=== PATIENT | female | born 1955 | race Caucasian/White ===

== ENCOUNTER → 2017-12-15 | Outpatient (REF) ==
[~2017-12-15] MED LIST: CHOL10003 PO; DCS100C PO; ESCI10TA55 PO; ESTR1TAB24 PO; HYDR1TAB75 PO; IBP800T PO; MULT-608 PO
--- NOTE | 2017-12-15 12:52 | Diagnostic Imaging Report ---
INDICATION: Fall, pain in the right knee. TIME OF EXAM: 12:37 p.m. Three views of the right knee were obtained. FINDINGS: There are prominent spurs involving the tibial spines. There is mild lateral compartmental degenerative change with marginal osteophyte formation. There is also patellofemoral degenerative change present. No fractures are identified. There is no dislocation. There does appear to be a [id number] knee joint effusion. IMPRESSION: Degenerative changes and joint effusion. No acute bony abnormality is detected. Dictated by: Dictated on workstation # [id number]
== END | disposition home or self-care (01) ==
LOC: OCC 12:05
PROVIDERS: ATTEND Nurse Practitioner Family
CPT/HCPCS: 73562

== ENCOUNTER 2018-05-31 09:00 | Outpatient (CLI) | payer OTHER ==
[~2018-05-31] VITALS: Ht 157.5 cm; Wt 61.2 kg
[2018-05-31] MEDS ORDERED: ESTR0.5T PO (09:02)
[2018-05-31] MEDS ORDERED: ROSU10TA27 PO (09:02)
[2018-05-31] MEDS ORDERED: CHOL200059 PO (09:02)
[2018-05-31] MEDS ORDERED: MULT1TAB69 PO (09:02)
== END 2018-05-31 10:13 ==
LOC: PREOP 09:00
PROVIDERS: ATTEND Surgery
DX: Z01.818 Encounter for other preprocedural examination (principal); Z12.11 Encounter for screening for malignant neoplasm of colon; Z80.0 Family history of malignant neoplasm of digestive organs

== ENCOUNTER 2018-06-01 07:24 | Day surgery (SDC) | payer OTHER ==
[~2018-06-01] VITALS: Ht 157.5 cm; Wt 61.2 kg
[~2018-06-01 07:24] MED LIST changes: +CHOL200059 PO; +ESTR0.5T PO; +MULT1TAB69 PO; +ROSU10TA27 PO
[2018-06-01] MEDS ORDERED: LACTATED RINGERS 1,000 ML IV ONE (07:25)
[2018-06-01] MEDS ORDERED: LACTATED RINGERS 1,000 ML IV STA (07:28)
--- OUTSIDE RECORDS SUMMARY | 2018-06-01 07:37 | XMS REPORT | CCD ---
Author Author [facility] Address [address] [place] [address] Phone Care Team Providers Care Corporate Fitness Program Coordinator Name Role Phone PP Unavailable CCM Unavailable Summary Purpose Interface Exchange Insurance Providers Payer name Policy type / Coverage type Covered libertarian ID Effective Begin Date Effective End Date [employer] [facility] [employer]/[facility] [id number] 2015 Unknown Family history Mother Diagnosis Age At Onset Arthritis Unknown Colon cancer Unknown Social History Social History Element Codes Description Effective Dates Number of children Unknown 3 04/19/[address]: 750223096 Never smoker 04/19/[address]: 281785 Currently drinks alcohol 04/19/2015 Allergies, Adverse Reactions, Alerts Allergies, Adverse Reactions, Alerts data not found Past Medical History Illness Codes Condition Status Onset Date Resolved Date Cellulitis of right lower limb ICD-9: 682.7 ICD-10: L03.115 Active 05/28/2017 Unknown Generalized anxiety disorder ICD-9: 300.02 ICD-10: F41.1 Active 08/20/2016 Unknown Major depressive disorder, single episode, mild ICD-9: 296.21 ICD-10: F32.0 Active 08/20/2016 Unknown Major depressive disorder, single episode, moderate ICD-9: 296.22 ICD-10: F32.1 Active 05/21/2016 Unknown Benign paroxysmal vertigo, bilateral ICD-9: 386.11 ICD-10: H81.13 Active 04/16/2016 Unknown Other allergic rhinitis ICD-9: 477.8 ICD-10: J30.89 Active 04/16/2016 Unknown Polydipsia ICD-9: 783.5 ICD-10: R63.1 Active 04/16/2016 Unknown Encounter for general adult medical examination without abnormal findings ICD-9: V70.0 ICD-10: Z00.00 Active 02/28/2016 Unknown Encounter for screening for malignant neoplasm of colon ICD-9: V76.51 ICD-10: Z12.11 Active 02/28/2016 Unknown Hallux valgus (acquired), right foot ICD-9: 727.1 ICD-10: M20.11 Active 02/28/2016 Unknown Mastodynia ICD-9: 611.71 ICD-10: N64.4 Active 02/28/2016 Unknown Primary osteoarthritis, right hand ICD-9: 715.34 ICD-10: M19.041 Active 02/28/2016 Unknown Other screening mammogram ICD-9: V76.12 Active 04/24/2015 Unknown Osteoarthritis Unknown Active 04/19/2015 Unknown ABNORMAL MAMMOGRAM ICD -9: 793.80 Active 04/18/2015 Unknown Osteoarthritis ICD-9: 715.90 Active 04/18/2015 Unknown VITAMIN D DEFICIENCY ICD-9: 268.9 Active 04/18/2015 Unknown Well adult ICD-9: V70.0 Active 04/18/2015 Unknown Problems Condition Codes Effective Dates Condition Status Cellulitis of right lower limb ICD-9: 682.7 ICD-10: L03.115 05/28/2017 Active Generalized anxiety disorder ICD-9: 300.02 ICD-10: F41.1 08/20/2016 Active Major depressive disorder, single episode, mild ICD-9: 296.21 ICD-10: F32.0 08/20/2016 Active Major depressive disorder, single episode, moderate ICD-9: 296.22 ICD-10: F32.1 05/21/2016 Active Benign paroxysmal vertigo, bilateral ICD-9: 386.11 ICD-10: H81.13 04/16/2016 Active Other allergic rhinitis ICD-9: 477.8 ICD-10: J30.89 04/16/2016 Active Polydipsia ICD-9: 783.5 ICD-10: R63.1 04/16/2016 Active Encounter for general adult medical examination without abnormal findings ICD-9: V70.0 ICD-10: Z00.00 02/28/2016 Active Encounter for screening for malignant neoplasm of colon ICD-9: V76.51 ICD-10: Z12.11 02/28/2016 Active Hallux valgus (acquired), right foot ICD-9: 727.1 ICD-10: M20.11 02/28/2016 Active Mastodynia ICD-9: 611.71 ICD-10: N64.4 02/28/2016 Active Primary osteoarthritis, right hand ICD-9: 715.34 ICD-10: M19.041 02/28/2016 Active Other screening mammogram ICD-9: V76.12 04/24/2015 Active Osteoarthritis Unknown 04/19/2015 Active ABNORMAL MAMMOGRAM ICD -9: 793.80 04/18/2015 Active Osteoarthritis ICD-9: 715.90 04/18/2015 Active VITAMIN D DEFICIENCY ICD-9: 268.9 04/18/2015 Active Well adult ICD-9: V70.0 04/18/2015 Active Medications Medication Codes Instructions Start Date Stop Date Status Fill Instructions Lexapro 10 mg tablet RxNorm: 293134 TAKE 1 TABLET BY MOUTH DAILY 12/09/2017 06/06/2018 Active estradiol 0.5 mg tablet RxNorm: 699740 Tablet(s) TABLET(S) TAKE 1 TABLET BY MOUTH ONCE DAILY 11/03/2017 10/28/2018 Active estradiol 0.5 mg tablet RxNorm: 826052 Tablet(s) TABLET(S) TAKE 1 TABLET BY MOUTH ONCE DAILY 09/18/2017 11/02/2017 Inactive Crestor 10 mg tablet RxNorm: 338034 1 TABLET(S) PO DAILY 201603/12/2018 Active estradiol 0.5 mg tablet RxNorm: 442703 TABLET(S) TAKE 1 TABLET BY MOUTH ONCE DAILY 09/10/2017 09/17/2017 Inactive Bactrim DS 800 mg-160 mg tablet RxNorm: 963378 1 Tablet(s) PO BID 05/28/2017 06/06/2017 Inactive Lexapro 10 mg tablet RxNorm: 110745 TAKE 1 TABLET BY MOUTH DAILY 04/28/2017 07/26/2017 Inactive Crestor 10 mg tablet RxNorm: 915433 1 TABLET(S) PO DAILY 201609/05/2017 Inactive estradiol 0.5 mg tablet RxNorm: 070058 Tablet(s) TAKE 1 TABLET BY MOUTH ONCE DAILY 02/13/2017 09/09/2017 Inactive Lexapro 10 mg tablet RxNorm: 321900 1 TABLET(S) PO DAILY 201602/28/2017 Inactive Crestor 10 mg tablet RxNorm: 361211 1 Tablet(s) PO daily 201503/06/2017 Inactive Lexapro 10 mg tablet RxNorm: 740731 1 Tablet(s) PO daily 201511/18/2016 Inactive estradiol 0.5 mg tablet RxNorm: 546851 TAKE 1 TABLET BY MOUTH ONCE DAILY 07/09/2016 01/04/2017 Inactive Lexapro 10 mg tablet RxNorm: 961603 1 Tablet(s) PO daily 201508/19/2016 Inactive Crestor 10 mg tablet RxNorm: 314420 1 Tablet(s) PO daily 201509/05/2016 Inactive Crestor 10 mg tablet RxNorm: 465539 1 Tablet(s) PO daily 201505/08/2016 Inactive Crestor 10 mg tablet RxNorm: 076917 1 Tablet(s) PO daily 201505/07/2016 Inactive Vitamin D2 50,000 unit capsule RxNorm: 428651 TAKE 1 CAPSULE BY MOUTH ONCE WEEKLY 05/04/2016 06/28/2016 Inactive Flonase Allergy Relief 50 mcg/actuation nasal spray, suspension RxNorm: 2230830 1 [place] NASAL BID 04/17/2016 No Stop Date Active Lexapro 10 mg tablet RxNorm: 935254 1 Tablet(s) PO daily 201505/16/2016 Inactive cetirizine 10 mg tablet RxNorm: 5633623 1 Tablet(s) PO daily 05/16/2016 Inactive Voltaren 1 % topical gel RxNorm: 702424 4 Gram(s) TOP QID 02/2806/27/2016 Inactive estradiol 0.5 mg tablet RxNorm: 094549 TAKE 1 TABLET BY MOUTH ONCE DAILY 01/10/2016 07/07/2016 Inactive estradiol 0.5 mg tablet RxNorm: 239799 TAKE ONE TABLET BY MOUTH DAILY 09/24/2015 12/22/2015 Inactive estradiol 0.5 mg tablet RxNorm: 146632 TAKE ONE TABLET BY MOUTH DAILY 09/24/2015 12/22/2015 Inactive Vitamin D2 50,000 unit capsule RxNorm: 690675 1 Capsule(s) PO QW 08/23/2015 05/04/2016 Inactive estradiol 0.5 mg tablet RxNorm: 735238 1 Tablet(s) PO daily 07/201508/21/2015 Inactive Vitamin D3 1,000 unit capsule RxNorm: 035045 1 Capsule(s) PO daily No Start Date Active Feosol 325 mg (65 mg iron) tablet RxNorm: 370216 1 Tablet(s) PO No Start Date Active Centrum Silver tablet RxNorm: 1 Tablet(s) PO daily No Start Date Active Vitamin D2 oral RxNorm : 4018 oral No Start Date 05/16/2016 Inactive estradiol 0.5 mg tablet RxNorm: 588171 1 Tablet(s) PO daily No Start Date 04/23/2015 Inactive Medication Administered No Medication Administered data Immunizations Vaccine Codes Date Status Influenza CVX: 141 08/16/2014 completed Assessments Condition Codes Effective Dates Cellulitis of right lower limb ICD-10: L03.115 ICD-9: 682.7 05/28/2017 Major depressive disorder, single episode, mild ICD-10: F32.0 ICD-9: 296.21 08/21/2016 Generalized anxiety disorder ICD-10: F41.1 ICD-9: 300.02 08/21/2016 Major depressive disorder, single episode, moderate ICD-10: F32.1 ICD-9: 296.22 05/22/2016 Polydipsia ICD-10: R63.1 ICD-9: 783.5 04/17/2016 Benign paroxysmal vertigo, bilateral ICD-10: H81.13 ICD-9: 386.11 04/17/2016 Other allergic rhinitis ICD-10: J30.89 ICD-9: 477.8 04/17/2016 Primary osteoarthritis, right hand ICD-10: M19.041 ICD-9: 715.34 02/29/2016 Hallux valgus (acquired), right foot ICD-10: M20.11 ICD-9: 727.1 02/29/2016 Encounter for general adult medical examination without abnormal findings ICD-10: Z00.00 ICD-9: V70.0 02/29/2016 Encounter for screening for malignant neoplasm of colon ICD- 10: Z12.11 ICD-9: V76.51 02/29/2016 Mastodynia ICD-10: N64.4 ICD-9: 611.71 02/29/2016 Other screening mammogram ICD-9: V76.12 04/25/2015 Well adult ICD-9: V70.0 04/19/2015 VITAMIN D DEFICIENCY ICD-9: 268.9 2014 ABNORMAL MAMMOGRAM ICD-9: 793.80 2014 Osteoarthritis ICD-9: 715.90 04/19/2015 Reason For Visit Reason For Visit Effective Dates Notes sores 05/28/2017 anxiety 08/21/2016 anxiety 05/22/2016 vertigo 04/17/2016 breast complaint 02/29/2016 arthritis 04/19/2015 Results No Results data Review of Systems System Result Effective Dates Constitutional No recent illness 2016 Constitutional No chills 05/28/2017 Constitutional No diaphoresis 05/28/2017 Constitutional No fever 05/28/2017 Eyes No eye erythema 05/28/2017 Ears/Nose/Throat/Neck No nasal allergies 05/28/2017 Ears/Nose/Throat/Neck No nasal discharge 05/28/2017 Cardiovascular No chest pain/pressure Cardiovascular No dyspnea 05/28/2017 Respiratory No cough 05/28/2017 Respiratory No dyspnea 05/28/2017 Dermatologic sores 05/28/2017 Neurologic No alteration of consciousness 05/28/2017 Neurologic No mental status change 2016 Constitutional No recent illness 2015 Constitutional No chills 08/21/2016 Constitutional No diaphoresis 08/21/2016 Constitutional No fever 08/21/2016 Eyes No eye discharge 08/21/2016 Eyes No eye erythema 08/21/2016 Ears/Nose/Throat/Neck No nasal allergies 08/21/2016 Ears/Nose/Throat/Neck No nasal discharge 08/21/2016 Cardiovascular No chest pain/pressure 04/2016 Cardiovascular No dyspnea 08/21/2016 Respiratory No chest congestion 2015 Respiratory No cough 08/21/2016 Musculoskeletal No joint complaint 2015 Dermatologic No rash 08/21/2016 Neurologic No alteration of consciousness 08/21/2016 Neurologic No mental status change 2015 Psychiatric No anxiety 08/21/2016 Psychiatric depression 08/21/2016 Constitutional No malaise 08/21/2016 Gastrointestinal No abdominal pain 2015 Constitutional No chills 05/22/2016 Constitutional No diaphoresis 05/22/2016 Constitutional No fever 05/22/2016 Eyes No eye discharge 05/22/2016 Eyes No eye erythema 05/22/2016 Cardiovascular No chest pain/pressure 05/2016 Cardiovascular No dyspnea 05/22/2016 Respiratory No chest congestion 2015 Respiratory No cough 05/22/2016 Gastrointestinal No abdominal pain 2015 Gastrointestinal No constipation 2015 Gastrointestinal No diarrhea 05/22/2016 Musculoskeletal No joint complaint 2015 Dermatologic No rash 05/22/2016 Neurologic No alteration of consciousness 05/22/2016 Neurologic No mental status change 2015 Psychiatric No anxiety 05/22/2016 Psychiatric depression 05/22/2016 Constitutional No recent illness 2015 Ears/Nose/Throat/Neck No dizziness 2015 Ears/Nose/Throat/Neck No nasal allergies 05/22/2016 Ears/Nose/Throat/Neck No nasal discharge 05/22/2016 Constitutional No chills 04/17/2016 Constitutional No diaphoresis 04/17/2016 Constitutional No fever 04/17/2016 Constitutional No insomnia 04/17/2016 Constitutional No malaise 04/17/2016 Eyes No eye discharge 04/17/2016 Eyes No eye erythema 04/17/2016 Ears/Nose/Throat/Neck dizziness 2015 Ears/Nose/Throat/Neck No headache 2015 Cardiovascular No chest pain/pressure 12/2015 Cardiovascular No dyspnea 04/17/2016 Cardiovascular No edema 04/17/2016 Respiratory No productive sputum 2015 Respiratory No chest congestion 2015 Respiratory No cough 04/17/2016 Gastrointestinal No abdominal pain 2015 Gastrointestinal No constipation 2015 Gastrointestinal No diarrhea 04/17/2016 Dermatologic No rash 04/17/2016 Dermatologic No sores 04/17/2016 Neurologic No alteration of consciousness 04/17/2016 Psychiatric No anxiety 04/17/2016 Psychiatric depression 04/17/2016 Ears/Nose/Throat/Neck nasal allergies 12/2015 Ears/Nose/Throat/Neck nasal discharge 12/2015 Ears/Nose/Throat/Neck otalgia 04/17/2016 Musculoskeletal No joint complaint 2015 Neurologic No mental status change 2015 Endocrine polydipsia 04/17/2016 Constitutional No recent illness 2015 Constitutional No anorexia 02/29/2016 Constitutional No night sweats 2015 Constitutional No chills 02/29/2016 Constitutional No diaphoresis 02/29/2016 Constitutional No fever 02/29/2016 Constitutional No insomnia 02/29/2016 Constitutional No malaise 02/29/2016 Constitutional No weight loss 02/29/2016 Constitutional No weight gain 02/29/2016 Eyes No eye discharge 02/29/2016 Eyes No eye erythema 02/29/2016 Ears/Nose/Throat/Neck dizziness 2015 Ears/Nose/Throat/Neck No headache 2015 Cardiovascular No chest pain/pressure Cardiovascular No dyspnea 02/29/2016 Cardiovascular No edema 02/29/2016 Respiratory No productive sputum 2015 Respiratory No chest congestion 2015 Respiratory No cough 02/29/2016 Gastrointestinal No abdominal pain 2015 Gastrointestinal No constipation 2015 Gastrointestinal No diarrhea 02/29/2016 Genitourinary/Nephrology No dysuria 02/28 Dermatologic No rash 02/29/2016 Dermatologic No sores 02/29/2016 Neurologic No alteration of consciousness 02/29/2016 Psychiatric No anxiety 02/29/2016 Psychiatric No depression 02/29/2016 Musculoskeletal joint complaint 2015 Genitourinary/Nephrology breast complaint 02/29/2016 Constitutional No recent illness 2014 Constitutional No anorexia 04/19/2015 Constitutional No night sweats 2014 Constitutional No chills 04/19/2015 Constitutional No diaphoresis 04/19/2015 Constitutional fatigue 04/19/2015 Constitutional No fever 04/19/2015 Constitutional No insomnia 04/19/2015 Constitutional No malaise 04/19/2015 Constitutional No weight loss 04/19/2015 Constitutional No weight gain 04/19/2015 Eyes No eye discharge 04/19/2015 Eyes No eye erythema 04/19/2015 Ears/Nose/Throat/Neck dizziness 2014 Ears/Nose/Throat/Neck No headache 2014 Cardiovascular No chest pain/pressure 02/2015 Cardiovascular No dyspnea 04/19/2015 Cardiovascular No edema 04/19/2015 Respiratory No productive sputum 2014 Respiratory No chest congestion 2014 Respiratory No cough 04/19/2015 Gastrointestinal No abdominal pain 2014 Gastrointestinal No constipation 2014 Gastrointestinal No diarrhea 04/19/2015 Genitourinary/Nephrology No dysuria 04/19 Musculoskeletal joint complaint 2014 Dermatologic No rash 04/19/2015 Dermatologic No sores 04/19/2015 Neurologic No alteration of consciousness 04/19/2015 Psychiatric No anxiety 04/19/2015 Psychiatric No depression 04/19/2015 Physical Exam Exam Name System Name Item Name Status Result Effective Dates Notes Full Exam - Dermatology Constitutional general appearance Overall: well nourished 05/28/2017 None Full Exam - Dermatology Constitutional general appearance Overall: well developed 05/28/2017 None Full Exam - Dermatology Constitutional general appearance Overall: in no acute distress 05/28/2017 None Full Exam - Dermatology Eyes conjunctiva/ eyelids Overall: clear conjunctiva bilaterally 05/28/2017 None Full Exam - Dermatology Eyes conjunctiva/ eyelids Overall: normal eyelids 05/28/2017 None Full Exam - Dermatology Ears/Nose/Throat oropharynx Overall: clear oral mucosa 05/28/2017 None Full Exam - Dermatology Ears/Nose/Throat lips/teeth/gingiva Overall: benign lips 05/28/2017 None Full Exam - Dermatology Respiratory respiratory effort/rhythm Overall: no retractions 05/28/2017 None Full Exam - Dermatology Respiratory respiratory effort/rhythm Overall: normal rate 05/28/2017 None Full Exam - Dermatology Integument insp & palp - right lower extremity Location: on the foot 05/28/2017 None Full Exam - Dermatology Integument insp & palp - right lower extremity Color: erythematous 05/28/2017 None Full Exam - Dermatology Integument insp & palp - right lower extremity Appearance: indurated 05/28/2017 None Full Exam - Dermatology Integument insp & palp - right lower extremity Number: two 05/28/2017 None Full Exam - Dermatology Integument insp & palp - right lower extremity Consistency: firm 05/28/2017 None Full Exam - Dermatology Integument insp & palp - right lower extremity Consistency: tender 05/28/2017 None Full Exam - Dermatology Psychiatric orientation Overall: oriented to person, place and time 05/28/2017 None Full Exam - Dermatology Psychiatric mood and affect Overall: normal mood and affect 05/28/2017 None Full Exam - Dermatology Neurologic gait Overall: no ataxia, no unsteadiness 05/28/2017 None Full Exam - General 1994 Constitutional general appearance Overall: well developed 08/21/2016 None Full Exam - General 1994 Constitutional general appearance Overall: in no acute distress 08/21/2016 None Full Exam - General 1994 Constitutional general appearance Overall: well nourished 08/21/2016 None Full Exam - General 1994 Eyes conjunctiva /eyelids Overall: conjunctiva clear 08/21/2016 None Full Exam - General 1994 Eyes conjunctiva /eyelids Overall: cornea clear 08/21/2016 None Full Exam - General 1994 Eyes conjunctiva /eyelids Overall: eyelids normal 08/21/2016 None Full Exam - General 1994 Ears/Nose/Throat lips/teeth/gingiva Overall: benign lips 08/21/2016 None Full Exam - General 1994 Ears/Nose/Throat oral cavity/pharynx/larynx Overall: oral mucosa clear 08/21/2016 None Full Exam - General 1994 Respiratory auscultation Overall: breath sounds clear bilaterally 08/21/2016 None Full Exam - General 1994 Respiratory respiratory effort/rhythm Overall: no retractions 08/21/2016 None Full Exam - General 1994 Respiratory respiratory effort/rhythm Overall: normal rate 08/21/2016 None Full Exam - General 1994 Cardiovascular extremities Overall: no clubbing 08/21/2016 None Full Exam - General 1994 Cardiovascular auscultation of heart Overall: regular rate 08/21/2016 None Full Exam - General 1994 Cardiovascular auscultation of heart Overall: normal heart sounds 08/21/2016 None Full Exam - General 1994 Musculoskeletal spine, ribs and pelvis Overall: good posture 08/21/2016 None Full Exam - General 1994 Musculoskeletal gait and station Overall: normal gait 08/21/2016 None Full Exam - General 1994 Musculoskeletal gait and station Overall: normal station 08/21/2016 None Full Exam - General 1994 Integument inspection of skin Overall: no rash, lesions 08/21/2016 None Full Exam - General 1994 Neurologic cranial nerves Overall: crainial nerves 2 - 12 grossly intact 08/21/2016 None Full Exam - General 1994 Psychiatric orientation/consciousness Overall: oriented to person, place and time 08/21/2016 None Full Exam - General 1994 Psychiatric mood and affect Overall: normal mood and affect 08/21/2016 None Full Exam - General 1994 Psychiatric mood and affect Mood: happy 08/21/2016 None Full Exam - General 1994 Psychiatric appearance Overall: well-groomed, good eye contact 08/21/2016 None Full Exam - General 1994 Eyes pupils and irises Overall: pupils equal, round, reactive to light and accomodation 08/21/2016 None Full Exam - General 1994 Ears/Nose/Throat oral cavity/pharynx/larynx Overall: oropharyngeal mucosa clear 08/21/2016 None Full Exam - General 1994 Ears/Nose/Throat oral cavity/pharynx/larynx Overall: no masses 08/21/2016 None Full Exam - General 1994 Ears/Nose/Throat otoscopic exam Overall: external auditory canals clear 08/21/2016 None Full Exam - General 1994 Ears/Nose/Throat otoscopic exam Overall: tympanic membranes clear 08/21/2016 None Full Exam - General 1994 Lymphatic neck nodes Overall: anterior cervical chain benign 08/21/2016 None Full Exam - General 1994 Lymphatic neck nodes Overall: posterior cervical chain benign 08/21/2016 None Full Exam - General 1994 Musculoskeletal head and neck Overall: head atraumatic 08/21/2016 None Full Exam - General 1994 Constitutional general appearance Overall: well developed 05/22/2016 None Full Exam - General 1994 Constitutional general appearance Overall: in no acute distress 05/22/2016 None Full Exam - General 1994 Constitutional general appearance Overall: well nourished 05/22/2016 None Full Exam - General 1994 Eyes conjunctiva /eyelids Overall: conjunctiva clear 05/22/2016 None Full Exam - General 1994 Eyes conjunctiva /eyelids Overall: cornea clear 05/22/2016 None Full Exam - General 1994 Eyes conjunctiva /eyelids Overall: eyelids normal 05/22/2016 None Full Exam - General 1994 Ears/Nose/Throat lips/teeth/gingiva Overall: benign lips 05/22/2016 None Full Exam - General 1994 Ears/Nose/Throat oral cavity/pharynx/larynx Overall: oral mucosa clear 05/22/2016 None Full Exam - General 1994 Ears/Nose/Throat oral cavity/pharynx/larynx Posterior Pharynx: clear post nasal drainage 05/22/2016 None Full Exam - General 1994 Respiratory auscultation Overall: breath sounds clear bilaterally 05/22/2016 None Full Exam - General 1994 Respiratory respiratory effort/rhythm Overall: no retractions 05/22/2016 None Full Exam - General 1994 Respiratory respiratory effort/rhythm Overall: normal rate 05/22/2016 None Full Exam - General 1994 Cardiovascular extremities Overall: no clubbing 05/22/2016 None Full Exam - General 1994 Cardiovascular auscultation of heart Overall: regular rate 05/22/2016 None Full Exam - General 1994 Cardiovascular auscultation of heart Overall: normal heart sounds 05/22/2016 None Full Exam - General 1994 Musculoskeletal spine, ribs and pelvis Overall: good posture 05/22/2016 None Full Exam - General 1994 Musculoskeletal gait and station Overall: normal gait 05/22/2016 None Full Exam - General 1994 Musculoskeletal gait and station Overall: normal station 05/22/2016 None Full Exam - General 1994 Integument inspection of skin Overall: no rash, lesions 05/22/2016 None Full Exam - General 1994 Neurologic cranial nerves Overall: crainial nerves 2 - 12 grossly intact 05/22/2016 None Full Exam - General 1994 Psychiatric orientation/consciousness Overall: oriented to person, place and time 05/22/2016 None Full Exam - General 1994 Psychiatric mood and affect Overall: normal mood and affect 05/22/2016 None Full Exam - General 1994 Psychiatric appearance Overall: well-groomed, good eye contact 05/22/2016 None Full Exam - General 1994 Psychiatric speech Overall: normal quality, no aphasia 05/22/2016 None Full Exam - General 1994 Psychiatric speech Overall: normal quality, quantity, rate 05/22/2016 None Full Exam - General 1994 Psychiatric mood and affect Mood: happy 05/22/2016 None Full Exam - General 1994 Constitutional general appearance Overall: well developed 04/17/2016 None Full Exam - General 1994 Constitutional general appearance Overall: in no acute distress 04/17/2016 None Full Exam - General 1994 Constitutional general appearance Overall: well nourished 04/17/2016 None Full Exam - General 1994 Eyes conjunctiva /eyelids Overall: conjunctiva clear 04/17/2016 None Full Exam - General 1994 Eyes conjunctiva /eyelids Overall: cornea clear 04/17/2016 None Full Exam - General 1994 Eyes conjunctiva /eyelids Overall: eyelids normal 04/17/2016 None Full Exam - General 1994 Ears/Nose/Throat otoscopic exam Overall: external auditory canals clear 04/17/2016 None Full Exam - General 1994 Ears/Nose/Throat oral cavity/pharynx/larynx Overall: oral mucosa clear 04/17/2016 None Full Exam - General 1994 Ears/Nose/Throat oral cavity/pharynx/larynx Overall: oropharyngeal mucosa clear 04/17/2016 None Full Exam - General 1994 Ears/Nose/Throat oral cavity/pharynx/larynx Overall: no masses 04/17/2016 None Full Exam - General 1994 Respiratory auscultation Overall: breath sounds clear bilaterally 04/17/2016 None Full Exam - General 1994 Respiratory respiratory effort/rhythm Overall: no retractions 04/17/2016 None Full Exam - General 1994 Respiratory respiratory effort/rhythm Overall: normal rate 04/17/2016 None Full Exam - General 1994 Cardiovascular extremities Overall: no clubbing 04/17/2016 None Full Exam - General 1994 Cardiovascular auscultation of heart Overall: regular rate 04/17/2016 None Full Exam - General 1994 Cardiovascular auscultation of heart Overall: normal heart sounds 04/17/2016 None Full Exam - General 1994 Abdomen abdominal exam Overall: no tenderness 04/17/2016 None Full Exam - General 1994 Abdomen abdominal exam Overall: normal bowel sounds 04/17/2016 None Full Exam - General 1994 Lymphatic neck nodes Overall: anterior cervical chain benign 04/17/2016 None Full Exam - General 1994 Lymphatic neck nodes Overall: posterior cervical chain benign 04/17/2016 None Full Exam - General 1994 Musculoskeletal spine, ribs and pelvis Overall: good posture 04/17/2016 None Full Exam - General 1994 Integument inspection of skin Overall: no rash, lesions 04/17/2016 None Full Exam - General 1994 Neurologic cranial nerves Overall: crainial nerves 2 - 12 grossly intact 04/17/2016 None Full Exam - General 1994 Psychiatric orientation/consciousness Overall: oriented to person, place and time 04/17/2016 None Full Exam - General 1994 Ears/Nose/Throat otoscopic exam Tympanic membrane: air- fluid level 04/17/2016 None Full Exam - General 1994 Ears/Nose/Throat oral cavity/pharynx/larynx Posterior Pharynx: clear post nasal drainage 04/17/2016 None Full Exam - General 1994 Ears/Nose/Throat lips/teeth/gingiva Overall: benign lips 04/17/2016 None Full Exam - General 1994 Musculoskeletal gait and station Overall: normal gait 04/17/2016 None Full Exam - General 1994 Musculoskeletal gait and station Overall: normal station 04/17/2016 None Full Exam - General 1994 Psychiatric mood and affect Overall: normal mood and affect 04/17/2016 None Full Exam - General 1994 Psychiatric appearance Overall: well-groomed, good eye contact 04/17/2016 None Full Exam - General 1994 Psychiatric speech Overall: normal quality, no aphasia 04/17/2016 None Full Exam - General 1994 Psychiatric speech Overall: normal quality, quantity, rate 04/17/2016 None Full Exam - General 1994 Psychiatric attention Overall: normal digit recall and number repeating 04/17/2016 None Full Exam - General 1994 Psychiatric thought Overall: normal form and content 04/17/2016 None Full Exam - General 1994 Psychiatric cognition/memory Overall: immediate, recent, remote memory intact 04/17/2016 None Full Exam - General 1994 Psychiatric cognition/memory Overall: normal concentration, intelligence 04/17/2016 None Full Exam - General 1994 Psychiatric judgment/insight Overall: judgment and insight intact 04/17/2016 None Full Exam - General 1994 Psychiatric mood and affect Mood: depressed 04/17/2016 None Full Exam - General 1994 Constitutional general appearance Overall: well developed 02/29/2016 None Full Exam - General 1994 Constitutional general appearance Overall: in no acute distress 02/29/2016 None Full Exam - General 1994 Constitutional general appearance Overall: well nourished 02/29/2016 None Full Exam - General 1994 Eyes conjunctiva /eyelids Overall: conjunctiva clear 02/29/2016 None Full Exam - General 1994 Eyes conjunctiva /eyelids Overall: cornea clear 02/29/2016 None Full Exam - General 1994 Eyes conjunctiva /eyelids Overall: eyelids normal 02/29/2016 None Full Exam - General 1994 Eyes pupils and irises Overall: pupils equal, round, reactive to light and accomodation 02/29/2016 None Full Exam - General 1994 Ears/Nose/Throat otoscopic exam Overall: external auditory canals clear 02/29/2016 None Full Exam - General 1994 Ears/Nose/Throat otoscopic exam Overall: tympanic membranes clear 02/29/2016 None Full Exam - General 1994 Ears/Nose/Throat oral cavity/pharynx/larynx Overall: oral mucosa clear 02/29/2016 None Full Exam - General 1994 Ears/Nose/Throat oral cavity/pharynx/larynx Overall: oropharyngeal mucosa clear 02/29/2016 None Full Exam - General 1994 Ears/Nose/Throat oral cavity/pharynx/larynx Overall: no masses 02/29/2016 None Full Exam - General 1994 Respiratory auscultation Overall: breath sounds clear bilaterally 02/29/2016 None Full Exam - General 1994 Respiratory respiratory effort/rhythm Overall: no retractions 02/29/2016 None Full Exam - General 1994 Respiratory respiratory effort/rhythm Overall: normal rate 02/29/2016 None Full Exam - General 1994 Cardiovascular extremities Overall: no clubbing 02/29/2016 None Full Exam - General 1994 Cardiovascular auscultation of heart Overall: regular rate 02/29/2016 None Full Exam - General 1994 Cardiovascular auscultation of heart Overall: normal heart sounds 02/29/2016 None Full Exam - General 1994 Cardiovascular auscultation of heart Overall: no murmurs 02/29/2016 None Full Exam - General 1994 Abdomen abdominal exam Overall: no tenderness 02/29/2016 None Full Exam - General 1994 Abdomen abdominal exam Overall: normal bowel sounds 02/29/2016 None Full Exam - General 1994 Lymphatic neck nodes Overall: anterior cervical chain benign 02/29/2016 None Full Exam - General 1994 Lymphatic neck nodes Overall: posterior cervical chain benign 02/29/2016 None Full Exam - General 1994 Musculoskeletal spine, ribs and pelvis Overall: spine benign 02/29/2016 None Full Exam - General 1994 Musculoskeletal spine, ribs and pelvis Overall: sacroiliac joint benign 02/29/2016 None Full Exam - General 1994 Musculoskeletal spine, ribs and pelvis Overall: good posture 02/29/2016 None Full Exam - General 1994 Integument inspection of skin Overall: no rash, lesions 02/29/2016 None Full Exam - General 1994 Neurologic deep tendon reflexes Overall: deep tendon reflexes intact 02/29/2016 None Full Exam - General 1994 Neurologic cranial nerves Overall: crainial nerves 2 - 12 grossly intact 02/29/2016 None Full Exam - General 1994 Psychiatric orientation/consciousness Overall: oriented to person, place and time 02/29/2016 None Full Exam - General 1994 Chest/Breast breast and axillae palpation Axillae: no mass 02/29/2016 None Full Exam - General 1994 Psychiatric orientation/consciousness Overall: oriented to person, place and time 04/19/2015 None Full Exam - General 1994 Neurologic deep tendon reflexes Overall: deep tendon reflexes intact 04/19/2015 None Full Exam - General 1994 Neurologic cranial nerves Overall: crainial nerves 2 - 12 grossly intact 04/19/2015 None Full Exam - General 1994 Integument inspection of skin Overall: no rash, lesions 04/19/2015 None Full Exam - General 1994 Musculoskeletal spine, ribs and pelvis Overall: good posture 04/19/2015 None Full Exam - General 1994 Musculoskeletal spine, ribs and pelvis Overall: sacroiliac joint benign 04/19/2015 None Full Exam - General 1994 Musculoskeletal spine, ribs and pelvis Overall: spine benign 04/19/2015 None Full Exam - General 1994 Lymphatic neck nodes Overall: anterior cervical chain benign 04/19/2015 None Full Exam - General 1994 Lymphatic neck nodes Overall: posterior cervical chain benign 04/19/2015 None Full Exam - General 1994 Abdomen abdominal exam Overall: no tenderness 04/19/2015 None Full Exam - General 1994 Abdomen abdominal exam Overall: normal bowel sounds 04/19/2015 None Full Exam - General 1994 Cardiovascular auscultation of heart Overall: regular rate 04/19/2015 None Full Exam - General 1994 Cardiovascular auscultation of heart Overall: normal heart sounds 04/19/2015 None Full Exam - General 1994 Cardiovascular auscultation of heart Overall: no murmurs 04/19/2015 None Full Exam - General 1994 Cardiovascular extremities Overall: no clubbing 04/19/2015 None Full Exam - General 1994 Respiratory auscultation Overall: breath sounds clear bilaterally 04/19/2015 None Full Exam - General 1994 Respiratory respiratory effort/rhythm Overall: normal rate 04/19/2015 None Full Exam - General 1994 Respiratory respiratory effort/rhythm Overall: no retractions 04/19/2015 None Full Exam - General 1994 Ears/Nose/Throat otoscopic exam Overall: tympanic membranes clear 04/19/2015 None Full Exam - General 1994 Ears/Nose/Throat otoscopic exam Overall: external auditory canals clear 04/19/2015 None Full Exam - General 1994 Ears/Nose/Throat oral cavity/pharynx/larynx Overall: oropharyngeal mucosa clear 04/19/2015 None Full Exam - General 1994 Ears/Nose/Throat oral cavity/pharynx/larynx Overall: no masses 04/19/2015 None Full Exam - General 1994 Ears/Nose/Throat oral cavity/pharynx/larynx Overall: oral mucosa clear 04/19/2015 None Full Exam - General 1994 Eyes conjunctiva /eyelids Overall: conjunctiva clear 04/19/2015 None Full Exam - General 1994 Eyes conjunctiva /eyelids Overall: eyelids normal 04/19/2015 None Full Exam - General 1994 Eyes conjunctiva /eyelids Overall: cornea clear 04/19/2015 None Full Exam - General 1994 Eyes pupils and irises Overall: pupils equal, round, reactive to light and accomodation 04/19/2015 None Full Exam - General 1994 Constitutional general appearance Overall: well nourished 04/19/2015 None Full Exam - General 1994 Constitutional general appearance Overall: well developed 04/19/2015 None Full Exam - General 1994 Constitutional general appearance Overall: in no acute distress 04/19/2015 None Procedures No Procedures data Vital Signs Date Vital 05/28/2017 Blood Pressure 1: 132/70 Code : 8480-6 BMI: 25.4 Code : 88852-9 Heart Rate 1 : 62 bpm Height: 5'2" SpO2: 98% Weight: 139 lbs 08/21/2016 Blood Pressure 1: 140/72 Code : 8480-6 BMI: 24.9 Code : 24999-7 Heart Rate 1 : 59 bpm Height: 5'2" SpO2: 96% Weight: 136 lbs 05/22/2016 Blood Pressure 1: 120/72 Code : 8480-6 BMI: 25.1 Code : 59571-3 Heart Rate 1 : 67 bpm Height: 5'2" SpO2: 96% Weight: 137 lbs 04/17/2016 Blood Pressure 1: 130/68 Code : 8480-6 BMI: 24.5 Code : 84668-0 Heart Rate 1 : 75 bpm Height: 5'2" SpO2: 97% Weight: 134 lbs 02/29/2016 Blood Pressure 1: 130/80 Code : 8480-6 BMI: 25.1 Code : 99108-9 Heart Rate 1 : 60 bpm Height: 5'2" SpO2: 96% Weight: 137 lbs 04/19/2015 Blood Pressure 1: 128/70 Code : 8480-6 BMI: 25.1 Code : 87577-0 Heart Rate 1 : 72 bpm Height: 5'2" Weight: 137 lbs Functional Status No Functional Status data History of Present Illness Symptom Name Status Result Effective Date Notes sores Location-Extremities on the right foot 05/28/2017 None sores Quality acute None sores Quality erythematous 05/28/2017 None sores Quality pruritic 05/28/2017 None sores Quality enlarging 05/28/2017 None sores Color erythematous 05/28/2017 None sores Onset and Resolution sudden in onset 05/28/2017 None sores Pertinent Findings Denies fever 05/28/2017 None anxiety Quality chronic 08/21/2016 None anxiety Quality improving 08/21/2016 None anxiety Onset and Resolution ongoing 08/21/2016 None anxiety Limitation on Activities does not limit activities 08/21/2016 None anxiety Frequency of Episodes decreasing 08/21/2016 None anxiety Triggers divorce 08/21/2016 None anxiety Triggers family discord 08/21/2016 None anxiety Triggers stress 08/21/2016 None anxiety Alleviating Factors medication 08/21/2016 None anxiety Pertinent Findings Denies dyspnea 08/21/2016 None depression Quality chronic 08/21/2016 None depression Quality improving 08/21/2016 None depression Onset and Resolution ongoing 08/21/2016 None depression Onset of Symptom during adulthood 08/21/2016 None depression Limitation on Activities does not limit activities 08/21/2016 None depression Frequency of Episodes decreasing 08/21/2016 None depression Alleviating Factors medication 08/21/2016 None anxiety Quality chronic 05/22/2016 None anxiety Quality improving 05/22/2016 None anxiety Onset and Resolution ongoing 05/22/2016 None anxiety Limitation on Activities does not limit activities 05/22/2016 None anxiety Frequency of Episodes decreasing 05/22/2016 None anxiety Triggers divorce 05/22/2016 None anxiety Triggers family discord 05/22/2016 None anxiety Triggers stress 05/22/2016 None anxiety Alleviating Factors medication 05/22/2016 None anxiety Pertinent Findings Denies dyspnea 05/22/2016 None depression Quality chronic 05/22/2016 None depression Quality improving 05/22/2016 None depression Onset and Resolution ongoing 05/22/2016 None depression Onset of Symptom during adulthood 05/22/2016 None depression Limitation on Activities does not limit activities 05/22/2016 None depression Frequency of Episodes decreasing 05/22/2016 None depression Alleviating Factors medication 05/22/2016 None vertigo Quality intermittent 04/17/2016 None vertigo Onset and Resolution gradual in onset 04/17/2016 None vertigo Onset of Symptom 2 months ago 04/17/2016 None nasal allergies Location in both nares 04/17/2016 None nasal allergies Onset and Resolution ongoing 04/17/2016 None nasal allergies Onset of Symptom during adulthood 04/17/2016 None nasal allergies Triggers season change 04/17/2016 None nasal allergies Pertinent Findings Denies fever 04/17/2016 None polydipsia Onset and Resolution gradual in onset 04/17/2016 None polydipsia Onset and Resolution ongoing 04/17/2016 None polydipsia Pertinent Findings Denies fever 04/17/2016 None polydipsia Pertinent Findings Denies dehydration 04/17/2016 None breast complaint Quality intermittent 02/29/2016 None breast complaint Onset and Resolution ongoing 02/29/2016 None breast complaint Onset of Symptom 1 years ago 02/29/2016 None breast complaint Pertinent Findings Denies back pain 02/29/2016 None breast complaint Pertinent Findings breast pain 02/29/2016 None hand pain Location on the left 02/29/2016 None hand pain Location on the right 02/29/2016 None hand pain Pertinent Findings Denies decreased range of motion 02/29/2016 None hand pain Pertinent Findings Denies pain with movement 02/29/2016 None breast complaint Location in the left upper outer quadrant 02/29/2016 None arthritis Exacerbating Factors activity 04/19/2015 None arthritis Frequency of Episodes unchanged 04/19/2015 None arthritis Pertinent Findings swelling 04/19/2015 None arthritis Pertinent Findings stiffness 04/19/2015 None arthritis Alleviating Factors NSAID's 04/19/2015 None memory loss Frequency of Episodes weekly 04/19/2015 None memory loss Limitation on Activities does not limit activities 04/19/2015 None memory loss Onset and Resolution ongoing 04/19/2015 None memory loss Triggers no known associated factors 04/19/2015 None arthritis Limitation on Activities does not limit activities 04/19/2015 None arthritis Location knees 04/19/2015 None arthritis Location on the left 04/19/2015 None arthritis Location on the right 04/19/2015 None arthritis Onset and Resolution ongoing 04/19/2015 None arthritis Quality chronic 04/19/2015 None arthritis Severity mild 04/19/2015 None arthritis Sports Participation not significant 04/19/2015 None Advance Directives No Advance Directive data Encounters Encounter Performer Location Codes Date 73383 EST. PATIENT, LEVEL III Diagnosis: Cellulitis of right lower limb[ICD10: L03.115] Rachel Lozada MD, [facility] CPT-4: 63200 05/28/2017 97649 EST. PATIENT, LEVEL IV Diagnosis: Generalized anxiety disorder[ICD10: F41.1] Diagnosis: Major depressive disorder, single episode, mild[ICD10: F32.0] Rachel Lozada MD , [facility] CPT-4: 45971 08/21/2016 80483 EST. PATIENT, LEVEL IV Diagnosis: Generalized anxiety disorder[ICD10: F41.1] Diagnosis: Major depressive disorder, single episode, moderate[ICD10: F32.1] Rachel Lozada MD, [facility] CPT-4: 78984 05/22/2016 74291 EST. PATIENT, LEVEL IV Diagnosis: Benign paroxysmal vertigo, bilateral[ICD10: H81.13] Diagnosis: Other allergic rhinitis[ICD10: J30.89] Diagnosis: Polydipsia[ICD10: R63.1] Diagnosis: Major depressive disorder, single episode, moderate[ICD10: F32.1] [facility] CPT-4: 44340 04/17/2016 ([id number]) PREV VISIT EST AGE 40-64 Diagnosis: Encounter for general adult medical examination without abnormal findings[ICD10: Z00.00] Diagnosis: Encounter for screening for malignant neoplasm of colon[ICD10: Z12.11 ] Diagnosis: Mastodynia[ICD10: N64.4] Diagnosis: Primary osteoarthritis, right hand[ICD10: M19.041] Diagnosis: Hallux valgus (acquired), right foot[ICD10: M20.11] [facility] CPT-4: 77756 02/29/2016 ([id number]) PREV VISIT NEW AGE 40-64 Diagnosis: Well adult[ICD9: V70.0] Diagnosis: Osteoarthritis[ICD9: 715.90] Diagnosis: VITAMIN D DEFICIENCY[ICD9: 268.9] Diagnosis: ABNORMAL MAMMOGRAM[ICD9: 793.80] [facility] CPT-4: 67251 04/19/2015 Plan of Care Planned Activity Notes Codes Status Date Visit Plan: Cellulitis - continue with oral antibiotics as previously directed, return to clinic as previously directed, call for acute change in symptoms, worsening redness, warmth, discharge. 05/28/2017 Appointment: Rachel Walter WPtel: [address] [place], [place] [id number] [[email or web address] (30 min) [facility] 05/28/2017 Patient Education: Patient Medication Summary Completed 05/28/2017 Patient Education: Obesity Completed 05/28/2017 Visit Plan: Chronic Depression and anxiety - the pt has symptoms of chronic anxiety and depression that have been fairly well controlled since the last office visit. The pt has expected periods of exacerbation with abatement of the symptoms with change in situational exposure. No change in current medications. 08/21/2016 Patient Education: Patient Medication Summary Completed 08/21/2016 Visit Plan: Chronic Depression and anxiety - the pt has symptoms of chronic anxiety and depression that have been fairly well controlled since the last office visit. The pt has expected periods of exacerbation with abatement of the symptoms with change in situational exposure. No change in current medications. 05/22/2016 Patient Education: Patient Medication Summary Completed 05/22/2016 Visit Plan: Allergies - chronic - recommended pt to use allergy medication as prescribed. Pt has been counseled as to the appropriate use of the medication. Pt to call if allergy symptoms are not controlled with the medication. If using nasal spray, instructions as follows: Nasal spray- use twice daily, one spray per nostril twice daily, after 30 minutes, rinse out nose with saline spray.. Use opposite hand per nostril to spray in the nasal steroid allergy spray. BPPV - Benign Paroxysmal Positional Vertigo - discussed diagnosis with the patient, offered the pt the appropriate additional information in hand-out. Pt instructed in home exercises to help alleviate and prevent future recurrent episodes of vertigo. Pt informed that if symptoms worsen, call the office for further instructions/medication interventions. Depression - uncontrolled - Pt has been counseled about the diagnosis of depression, the potential causes, and risks associated with the diagnosis. The pt denies suicidal ideation, or plans. The patient has been counseled about treatment options, and understands the risks associated with treatment of depression, as well as the risks associated with NOT treating the depression. I believe the pt will benefit from medical intervention and an antidepressant has been appropriately prescribed for this patient. Memory problems - SLUMs screening done see scanned document. 04/17/2016 Appointment: Rachel Walter WPtel: [address] [place], [place] [id number] (30 min) Complex 04/17/2016 Patient Education: Patient Medication Summary Completed 04/17/2016 Visit Plan: Well Adult - pt was counseled about diet, exercise, and encouraged to follow a heart healthy diet and increase activity level. The patient was instructed to RTC yearly for well adult exams and PRN for acute illnesses. The pt was also instructed to have yearly labs for check of cholesterol, thyroid, chem panel, CBC, and renal functioning. Family history of colon cancer-refer for colonoscopy to Dr See Breast left-schedule diagnostic mammogram with ultrasound if needed Arthritis of hands-RX for voltaren gel 02/29/2016 Appointment: Physical 02/29/2016 Patient Education: Patient Medication Summary Completed 02/29/2016 Patient Education: Obesity Completed 02/29/2016 Patient Education: Patient Medication Summary Completed 04/25/2015 Visit Plan: Well Adult - pt was counseled about diet, exercise, and encouraged to follow a heart healthy diet and increase activity level. The patient was instructed to RTC yearly for well adult exams and PRN for acute illnesses. The pt was also instructed to have yearly labs for check of cholesterol, thyroid, chem panel, CBC, and renal functioning. Arthritis- occasionally uncontrolled symptoms- recommend pt to take antiinflammatory as directed for pain control. Use tylenol for break through pain symptoms. Recommend using voltaren gel to knees as directed Vitamin D deficiency-check vitamin D level Repeat mammogram with ultrasound to re evaluate left breast 04/19/2015 Visit Plan: Well Adult - pt was counseled about diet, exercise, and encouraged to follow a heart healthy diet and increase activity level. The patient was instructed to RTC yearly for well adult exams and PRN for acute illnesses. The pt was also instructed to have yearly labs for check of cholesterol, thyroid, chem panel, CBC, and renal functioning. Arthritis- occasionally uncontrolled symptoms- recommend pt to take antiinflammatory as directed for pain control. Use tylenol for break through pain symptoms. Recommend using voltaren gel to knees as directed Vitamin D deficiency-check vitamin D level Repeat mammogram with ultrasound to re evaluate left breast 04/19/2015 Appointment: Stacy Bartlett WPtel: [address] [place], [place] [phone] [place] ([place]) New Patient 04/19/2015 Patient Education: Patient Medication Summary Completed 04/19/2015 Referral: Ludin See HPtel:[phone] [facility] [place] Referral Completed Instructions Comment GET PATH REPORT FROM COLONOSCOPY, IF YOU HAD A POLYP, NEED TO REPEAT COLONOSCOPY THIS YEAR-DR SEE REPEAT BREAT ULTRASOUND RECOMMEND VOLTAREN GELS TO KNEES REPEAT VITAMIN D LEVEL-FAX RECENT LABS AND WE WILL SEE IF YOU NEED ANY OTHER LABS CHECKED . Well Adult - pt was counseled about diet, exercise, and encouraged to follow a heart healthy diet and increase activity level. The patient was instructed to RTC yearly for well adult exams and PRN for acute illnesses. The pt was also instructed to have yearly labs for check of cholesterol, thyroid, chem panel, CBC, and renal functioning. Arthritis- occasionally uncontrolled symptoms- recommend pt to take antiinflammatory as directed for pain control. Use tylenol for break through pain symptoms. Recommend using voltaren gel to knees as directed Vitamin D deficiency-check vitamin D level Repeat mammogram with ultrasound to re evaluate left breast GET PATH REPORT FROM COLONOSCOPY, IF YOU HAD A POLYP, NEED TO REPEAT COLONOSCOPY THIS YEAR-DR SEE REPEAT BREAT ULTRASOUND RECOMMEND VOLTAREN GELS TO KNEES REPEAT VITAMIN D LEVEL-FAX RECENT LABS AND WE WILL SEE IF YOU NEED ANY OTHER LABS CHECKED . Well Adult - pt was counseled about diet, exercise, and encouraged to follow a heart healthy diet and increase activity level. The patient was instructed to RTC yearly for well adult exams and PRN for acute illnesses. The pt was also instructed to have yearly labs for check of cholesterol, thyroid, chem panel, CBC, and renal functioning. Arthritis- occasionally uncontrolled symptoms- recommend pt to take antiinflammatory as directed for pain control. Use tylenol for break through pain symptoms. Recommend using voltaren gel to knees as directed Vitamin D deficiency-check vitamin D level Repeat mammogram with ultrasound to re evaluate left breast . Chronic Depression and anxiety - the pt has symptoms of chronic anxiety and depression that have been fairly well controlled since the last office visit. The pt has expected periods of exacerbation with abatement of the symptoms with change in situational exposure. No change in current medications. . Chronic Depression and anxiety - the pt has symptoms of chronic anxiety and depression that have been fairly well controlled since the last office visit. The pt has expected periods of exacerbation with abatement of the symptoms with change in situational exposure. No change in current medications. Diagnostic mammogram with ultrasound DX left breast pain . Well Adult - pt was counseled about diet, exercise, and encouraged to follow a heart healthy diet and increase activity level. The patient was instructed to RTC yearly for well adult exams and PRN for acute illnesses. The pt was also instructed to have yearly labs for check of cholesterol, thyroid, chem panel, CBC, and renal functioning. Family history of colon cancer-refer for colonoscopy to Dr See Breast left-schedule diagnostic mammogram with ultrasound if needed Arthritis of hands-RX for voltaren gel . Cellulitis - continue with oral antibiotics as previously directed, return to clinic as previously directed, call for acute change in symptoms, worsening redness, warmth, discharge. . Allergies - chronic - recommended pt to use allergy medication as prescribed. Pt has been counseled as to the appropriate use of the medication. Pt to call if allergy symptoms are not controlled with the medication. If using nasal spray, instructions as follows: Nasal spray- use twice daily, one spray per nostril twice daily, after 30 minutes, rinse out nose with saline spray.. Use opposite hand per nostril to spray in the nasal steroid allergy spray. BPPV - Benign Paroxysmal Positional Vertigo - discussed diagnosis with the patient, offered the pt the appropriate additional information in hand-out. Pt instructed in home exercises to help alleviate and prevent future recurrent episodes of vertigo. Pt informed that if symptoms worsen, call the office for further instructions/medication interventions. Depression - uncontrolled - Pt has been counseled about the diagnosis of depression, the potential causes, and risks associated with the diagnosis. The pt denies suicidal ideation, or plans. The patient has been counseled about treatment options, and understands the risks associated with treatment of depression, as well as the risks associated with NOT treating the depression. I believe the pt will benefit from medical intervention and an antidepressant has been appropriately prescribed for this patient. Memory problems - SLUMs screening done see scanned document.
--- OUTSIDE RECORDS SUMMARY | 2018-06-01 07:37 | XMS REPORT | Continuity of Care Document ---
Author Author [facility] Organization [facility] Address Unknown Phone Unavailable Allergies Active Description Code Type Severity Reaction Onset Reported/Identified Relationship to Patient Clinical Status Yes No Known Drug Allergies [id number] Drug Allergy Unknown N/A 06/05/2016 Medications There is no data. Problems Date Dx Coded Attending Type Code Diagnosis Diagnosed By 06/10/2011 Ot 218.1 INTRAMURAL LEIOMYOMA 06/10/2011 Ot 618.4 UTERVAGINAL PROLAPSE NOS 06/10/2011 Ot 620.2 OVARIAN CYST NEC/NOS 06/10/2011 Ot 620.3 ACQ ATROPHY OVARY TUBE 06/10/2011 Ot 620.8 NONINFL DIS OVA/ADNX NEC 12/22/2011 Ot V16.0 FAMILY HX-GI MALIGNANCY 12/22/2011 Ot V76.51 SCREEN MAL NEOP-COLON 11/27/2014 WHITNEY HOLLIS MD Ot 793.80 12/14/2014 WHITNEY HOLLIS MD Ot 793.80 04/26/2015 Ot 268.9 04/26/2015 Ot 272.4 04/26/2015 Ot 729.5 04/26/2015 Ot 218.9 04/26/2015 Ot 620.2 04/26/2015 Ot 268.9 04/26/2015 Ot 272.4 04/26/2015 Ot V76.12 04/26/2015 Ot 285.9 04/26/2015 Ot 618.1 04/26/2015 Ot V72.63 04/26/2015 Ot 268.9 04/26/2015 Ot 272.4 04/26/2015 Ot V76.12 04/26/2015 WHITNEY HOLLIS MD Ot V76.12 04/26/2015 WHITNEY HOLLIS MD Ot 611.71 04/26/2015 WHITNEY HOLLIS MD Ot 793.80 05/12/2015 KRISTEN CONTRERAS CLOTHING CUTTER Ot 793.80 01/25/2016 Ot 218.9 01/25/2016 Ot 620.2 01/25/2016 Ot 268.9 01/25/2016 Ot 272.4 01/25/2016 Ot V76.12 01/25/2016 Ot 285.9 01/25/2016 Ot 618.1 01/25/2016 Ot V72.63 01/25/2016 Ot 268.9 01/25/2016 Ot 272.4 01/25/2016 Ot V76.12 01/25/2016 WHITNEY HOLLIS MD Ot V76.12 01/25/2016 WHITNEY HOLLIS MD Ot 611.71 01/28/2016 Ot 218.9 01/28/2016 Ot 620.2 01/28/2016 Ot 268.9 01/28/2016 Ot 272.4 01/28/2016 Ot V76.12 01/28/2016 Ot 285.9 01/28/2016 Ot 618.1 01/28/2016 Ot V72.63 01/28/2016 Ot 268.9 01/28/2016 Ot 272.4 01/28/2016 Ot V76.12 01/28/2016 WHITNEY HOLLIS MD Ot V76.12 01/28/2016 WHITNEY HOLLIS MD Ot 611.71 2016 Ot 218.9 2016 Ot 620.2 2016 Ot 268.9 2016 Ot 272.4 2016 Ot V76.12 2016 Ot 285.9 2016 Ot 618.1 2016 Ot V72.63 2016 Ot 268.9 2016 Ot 272.4 2016 Ot V76.12 2016 WHITNEY HOLLIS MD Ot V76.12 2016 WHITNEY HOLLIS MD Ot 611.71 02/12/2016 Ot 218.9 02/12/2016 Ot 620.2 02/12/2016 Ot 268.9 02/12/2016 Ot 272.4 02/12/2016 Ot V76.12 02/12/2016 Ot 285.9 02/12/2016 Ot 618.1 02/12/2016 Ot V72.63 02/12/2016 Ot 268.9 02/12/2016 Ot 272.4 02/12/2016 Ot V76.12 02/12/2016 WHITNEY HOLLIS MD Ot V76.12 02/12/2016 WHITNEY HOLLIS MD Ot 611.71 03/14/2016 Ot 218.9 UTERINE LEIOMYOMA NOS 03/14/2016 Ot 620.2 OVARIAN CYST NEC/NOS 03/14/2016 Ot 268.9 VITAMIN D DEFICIENCY NOS 03/14/2016 Ot 272.4 HYPERLIPIDEMIA NEC/NOS 03/14/2016 Ot V76.12 OTH SCREEN MAMMO-MALIGN NEOPLASM OF MICHELL 03/14/2016 Ot 285.9 ANEMIA NOS 03/14/2016 Ot 618.1 UTERINE PROLAPSE 03/14/2016 Ot V72.63 PRE- PROCEDURAL LABORATORY EXAMINATION 03/14/2016 Ot 268.9 VITAMIN D DEFICIENCY NOS 03/14/2016 Ot 272.4 HYPERLIPIDEMIA NEC/NOS 03/14/2016 Ot V76.12 OTH SCREEN MAMMO-MALIGN NEOPLASM OF MICHELL 03/14/2016 WHITNEY HOLLIS MD Ot V76.12 OTH SCREEN MAMMO-MALIGN NEOPLASM OF MICHELL 03/14/2016 WHITNEY HOLLIS MD Ot 611.71 MASTODYNIA 05/01/2016 Ot 218.9 UTERINE LEIOMYOMA NOS 05/01/2016 Ot 620.2 OVARIAN CYST NEC/NOS 05/01/2016 Ot 268.9 VITAMIN D DEFICIENCY NOS 05/01/2016 Ot 272.4 HYPERLIPIDEMIA NEC/NOS 05/01/2016 Ot V76.12 OTH SCREEN MAMMO-MALIGN NEOPLASM OF MICHELL 05/01/2016 Ot 285.9 ANEMIA NOS 05/01/2016 Ot 618.1 UTERINE PROLAPSE 05/01/2016 Ot V72.63 PRE- PROCEDURAL LABORATORY EXAMINATION 05/01/2016 Ot 268.9 VITAMIN D DEFICIENCY NOS 05/01/2016 Ot 272.4 HYPERLIPIDEMIA NEC/NOS 05/01/2016 Ot V76.12 OTH SCREEN MAMMO-MALIGN NEOPLASM OF MICHELL 05/01/2016 WHITNEY HOLLIS MD Ot V76.12 OTH SCREEN MAMMO-MALIGN NEOPLASM OF MICHELL 05/01/2016 WHITNEY HOLLIS MD Ot 611.71 MASTODYNIA 05/01/2016 WHITNEY HOLLIS MD Ot 793.80 UNSPEC ABNORMAL MAMMOGRAM 05/01/2016 KRISTEN CONTRERAS Ot 793.80 UNSPEC ABNORMAL MAMMOGRAM 05/14/2016 Ot 218.9 UTERINE LEIOMYOMA NOS 05/14/2016 Ot 620.2 OVARIAN CYST NEC/NOS 05/14/2016 Ot 268.9 VITAMIN D DEFICIENCY NOS 05/14/2016 Ot 272.4 HYPERLIPIDEMIA NEC/NOS 05/14/2016 Ot V76.12 OTH SCREEN MAMMO-MALIGN NEOPLASM OF MICHELL 05/14/2016 Ot 285.9 ANEMIA NOS 05/14/2016 Ot 618.1 UTERINE PROLAPSE 05/14/2016 Ot V72.63 PRE- PROCEDURAL LABORATORY EXAMINATION 05/14/2016 Ot 268.9 VITAMIN D DEFICIENCY NOS 05/14/2016 Ot 272.4 HYPERLIPIDEMIA NEC/NOS 05/14/2016 Ot V76.12 OTH SCREEN MAMMO-MALIGN NEOPLASM OF MICHELL 05/14/2016 WHITNEY HOLLIS MD Ot V76.12 OTH SCREEN MAMMO-MALIGN NEOPLASM OF MICHELL 05/14/2016 WHITNEY HOLLIS MD Ot 611.71 MASTODYNIA 05/16/2016 Ot 218.9 UTERINE LEIOMYOMA NOS 05/16/2016 Ot 620.2 OVARIAN CYST NEC/NOS 05/16/2016 Ot 268.9 VITAMIN D DEFICIENCY NOS 05/16/2016 Ot 272.4 HYPERLIPIDEMIA NEC/NOS 05/16/2016 Ot V76.12 OTH SCREEN MAMMO-MALIGN NEOPLASM OF MICHELL 05/16/2016 Ot 285.9 ANEMIA NOS 05/16/2016 Ot 618.1 UTERINE PROLAPSE 05/16/2016 Ot V72.63 PRE- PROCEDURAL LABORATORY EXAMINATION 05/16/2016 Ot 268.9 VITAMIN D DEFICIENCY NOS 05/16/2016 Ot 272.4 HYPERLIPIDEMIA NEC/NOS 05/16/2016 Ot V76.12 OTH SCREEN MAMMO-MALIGN NEOPLASM OF MICHELL 05/16/2016 WHITNEY HOLLIS MD Ot V76.12 OTH SCREEN MAMMO-MALIGN NEOPLASM OF MICHELL 05/16/2016 WHITNEY HOLLIS MD Ot 611.71 MASTODYNIA 05/16/2016 WHITNEY HOLLIS MD Ot 793.80 UNSPEC ABNORMAL MAMMOGRAM 05/16/2016 KRISTEN CONTRERAS Ot 793.80 UNSPEC ABNORMAL MAMMOGRAM 05/16/2016 TIMI SOTO ELEVATOR CONSTRUCTOR HELPER Ot Z00.00 ENCNTR FOR GENERAL ADULT MEDICAL EXAM W/ 05/21/2016 CONTRERAS, KRISTEN M CLOTHING CUTTER Ot N60.02 SOLITARY CYST OF LEFT BREAST 05/21/2016 KRISTEN CONTRERAS CLOTHING CUTTER Ot N64.4 MASTODYNIA 06/05/2016 SEE STEVEN MCBRIDE Ot Z01.818 ENCOUNTER FOR OTHER PREPROCEDURAL EXAMIN 06/06/2016 SEESTEVEN KINCAID DO Ot Z01.818 ENCOUNTER FOR OTHER PREPROCEDURAL EXAMIN 06/10/2016 SEE STEVEN MCBRIDE Ot Z12.11 ENCOUNTER FOR SCREENING FOR MALIGNANT NE 06/10/2016 SEE STEVEN MCBRIDE Ot Z80.0 FAMILY HISTORY OF MALIGNANT NEOPLASM OF 06/11/2016 SEE STEVEN MCBRIDE Ot Z12.11 ENCOUNTER FOR SCREENING FOR MALIGNANT NE 06/11/2016 SEE STEVEN MCBRIDE Ot Z80.0 FAMILY HISTORY OF MALIGNANT NEOPLASM OF 06/13/2016 KRISTEN CONTRERAS CLOTHING CUTTER Ot N60.02 SOLITARY CYST OF LEFT BREAST 06/13/2016 KRISTEN CONTRERAS CLOTHING CUTTER Ot N64.4 MASTODYNIA 08/25/2016 ARMANI ISAACS, MERARI Mosley Ot E78.5 HYPERLIPIDEMIA, UNSPECIFIED 09/18/2016 MERARI LOMELI MD Ot E78.5 HYPERLIPIDEMIA, UNSPECIFIED 05/25/2017 Ot 268.9 VITAMIN D DEFICIENCY NOS 05/25/2017 Ot 272.4 HYPERLIPIDEMIA NEC/NOS 05/25/2017 Ot V76.12 OTH SCREEN MAMMO-MALIGN NEOPLASM OF MICHELL 05/25/2017 WHITNEY HOLLIS MD Ot V76.12 OTH SCREEN MAMMO-MALIGN NEOPLASM OF MICHELL 05/25/2017 WHITNEY HOLLIS MD Ot 611.71 MASTODYNIA 10/23/2017 Ot 268.9 VITAMIN D DEFICIENCY NOS 10/23/2017 Ot 272.4 HYPERLIPIDEMIA NEC/NOS 10/23/2017 Ot V76.12 OTH SCREEN MAMMO-MALIGN NEOPLASM OF MICHELL 10/23/2017 WHITNEY HOLLIS MD Ot V76.12 OTH SCREEN MAMMO-MALIGN NEOPLASM OF MICHELL 10/23/2017 WHITNEY HOLLIS MD Ot 611.71 MASTODYNIA 04/27/2018 WHITNEY HOLLIS MD Ot V76.12 OTH SCREEN MAMMO-MALIGN NEOPLASM OF MICHELL 04/27/2018 WHITNEY HOLLIS MD Ot 611.71 MASTODYNIA 04/27/2018 WHITNEY HOLLIS MD Ot 793.80 UNSPEC ABNORMAL MAMMOGRAM 04/27/2018 KRISTEN CONTRERAS CLOTHING CUTTER Ot 793.80 UNSPEC ABNORMAL MAMMOGRAM 04/27/2018 KRISTEN CONTRERAS CLOTHING CUTTER Ot N60.02 SOLITARY CYST OF LEFT BREAST 04/27/2018 KRISTEN CONTRERAS CLOTHING CUTTER Ot N64.4 MASTODYNIA 04/27/2018 TIMI SOTO APRN Ot Z00.00 ENCNTR FOR GENERAL ADULT MEDICAL EXAM W/ 04/27/2018 MERARI LOMELI MD Ot E78.5 HYPERLIPIDEMIA, UNSPECIFIED 05/24/2018 WHITNEY HOLLIS MD Ot V76.12 OTH SCREEN MAMMO-MALIGN NEOPLASM OF MICHELL 05/24/2018 WHITNEY HOLLIS MD Ot 611.71 MASTODYNIA 05/24/2018 WHITNEY HOLLIS MD Ot 793.80 UNSPEC ABNORMAL MAMMOGRAM 05/24/2018 KRISTEN CONTRERAS CLOTHING CUTTER Ot 793.80 UNSPEC ABNORMAL MAMMOGRAM 05/24/2018 KRISTEN CONTRERAS CLOTHING CUTTER Ot N60.02 SOLITARY CYST OF LEFT BREAST 05/24/2018 KRISTEN CONTRERAS CLOTHING CUTTER Ot N64.4 MASTODYNIA 05/24/2018 TIMI SOTO APRN Ot Z00.00 ENCNTR FOR GENERAL ADULT MEDICAL EXAM W05/24/2018 MERARI LOMELI MD Ot E78.5 HYPERLIPIDEMIA, UNSPECIFIED 05/26/2018 STEVEN SEE DO Ot Z01.818 ENCOUNTER FOR OTHER PREPROCEDURAL EXAMIN 05/31/2018 STEVEN SEE DO Ot Z01.818 ENCOUNTER FOR OTHER PREPROCEDURAL EXAMIN Procedures There is no data. Results Test Result Range Complete blood count (CBC) with automated white blood cell (WBC) differential - 08/19/16 07:50 Blood leukocytes automated count (number/volume) 3.5 10*3/uL 4.3-11.0 Blood erythrocytes automated count (number/volume) 4.60 10*6/uL 4.35-5.85 Venous blood hemoglobin measurement (mass/volume) 14.4 g/dL 11.5-16.0 Blood hematocrit (volume fraction) 42 % 35-52 Automated erythrocyte mean corpuscular volume 92 [foz_us] 80-99 Automated erythrocyte mean corpuscular hemoglobin (mass per erythrocyte) 31 pg 25-34 Automated erythrocyte mean corpuscular hemoglobin concentration measurement ( mass/volume) 34 g/dL 32-36 Automated erythrocyte distribution width ratio 12.5 % 10.0-14.5 Automated blood platelet count (count/volume) 308 10*3/uL 130-400 Automated blood platelet mean volume measurement 10.3 [foz_us] 7.4-10.4 Automated blood neutrophils/100 leukocytes 64 % 42-75 Automated blood lymphocytes/100 leukocytes 23 % 12-44 Blood monocytes/100 leukocytes 11 % 0-12 Automated blood eosinophils/100 leukocytes 2 % 0-10 Automated blood basophils/100 leukocytes 1 % 0-10 Blood neutrophils automated count (number/volume) 2.2 10*3 1.8-7.8 Blood lymphocytes automated count (number/volume) 0.8 10*3 1.0-4.0 Blood monocytes automated count (number/volume) 0.4 10*3 0.0-1.0 Automated eosinophil count 0.1 10*3/uL 0.0-0.3 Automated blood basophil count (count/volume) 0.0 10*3/uL 0.0-0.1 Comprehensive metabolic panel - 08/19/16 07:50 Serum or plasma sodium measurement (moles/volume) 136 mmol/L 135-145 Serum or plasma potassium measurement (moles/volume) 4.1 mmol/L 3.6-5.0 Serum or plasma chloride measurement (moles/volume) 105 mmol/L 98-107 Carbon dioxide 20 mmol/L 21-32 Serum or plasma anion gap determination (moles/volume) 11 mmol/L 5-14 Serum or plasma urea nitrogen measurement (mass/volume) 17 mg/dL 7-18 Serum or plasma creatinine measurement (mass/volume) 0.73 mg/dL 0.60-1.30 Serum or plasma urea nitrogen/creatinine mass ratio 23 NRG Serum or plasma creatinine measurement with calculation of estimated glomerular filtration rate > NRG Serum or plasma glucose measurement (mass/volume) 96 mg/dL 70-105 Serum or plasma calcium measurement (mass/volume) 9.1 mg/dL 8.5-10.1 Serum or plasma total bilirubin measurement (mass/volume) 0.5 mg/dL 0.1-1.0 Serum or plasma alkaline phosphatase measurement (enzymatic activity/volume) 67 U/L 40-136 Serum or plasma aspartate aminotransferase measurement (enzymatic activity/ volume) 36 U/L 5-34 Serum or plasma alanine aminotransferase measurement (enzymatic activity/volume ) 37 U/L 0-55 Serum or plasma protein measurement (mass/volume) 6.8 g/dL 6.4-8.2 Serum or plasma albumin measurement (mass/volume) 4.0 g/dL 3.2-4.5 Lipid 1996 panel - 08/19/16 07:50 Serum or plasma triglyceride measurement (mass/volume) 49 mg/dL <150 Serum or plasma cholesterol measurement (mass/volume) 161 mg/dL < 200 Serum or plasma cholesterol in HDL measurement (mass/volume) 62 mg/ dL 40-60 Cholesterol in LDL [mass/volume] in serum or plasma by direct assay 85 mg/dL 1-129 Serum or plasma cholesterol in VLDL measurement (mass/volume) 10 mg/ dL 5-40 Encounters ACCT No. Visit Date/Time Discharge Status Pt. Type Provider Facility Loc./Unit Complaint [id number] 05/31/2018 09:00:00 05/31/2018 10:13:00 DIS Outpatient STEVEN SEE DO [facility] PREOP COLONOSCOPY [id number] 04/27/2018 09:26:00 04/27/2018 23:59:59 CLS Preadmit TIMI SOTO APRN [facility] RAD SCREENING [id number] 12/15/2017 12:05:00 12/15/2017 23:59:59 CLS Outpatient ADALBERTO SERRANO [facility] OCC TRIPPED AND FELL [id number] 08/19/2016 08:01:00 08/19/2016 23:59:59 CLS Outpatient MERARI LOMELI MD [facility] LAB HYPERLIPIDEMIA [id number] 06/10/2016 08:36:00 06/10/2016 12:15:00 DIS Outpatient STEVEN SEE DO [facility] SDC SCREENING [id number] 06/05/2016 05:40:00 06/05/2016 14:51:00 DIS Outpatient STEVEN SEE DO [facility] PREOP SCREENING [id number] 05/16/2016 08:34:00 05/16/2016 23:59:59 CLS Outpatient KRISTEN CONTRERAS [facility] RAD L BREAST PAIN,F/U CYST [id number] 05/01/2016 07:03:00 05/01/2016 23:59:59 CLS Outpatient TIMI SOTO ELEVATOR CONSTRUCTOR HELPER [facility] LAB ROUTINE EXAM [id number] 04/26/2015 07:23:00 04/26/2015 23:59:59 CLS Outpatient KRISTEN CONTRERAS [facility] RAD 6 MONTH FOLLOWUP [id number] 11/22/2014 07:36:00 11/22/2014 23:59:59 CLS Outpatient WHITNEY HOLLIS MD [facility] RAD F/U SIX MONTH ABN MAMMO [id number] 05/08/2014 10:21:00 05/08/2014 23:59:59 CLS Outpatient WHITNEY HOLLIS MD [facility] RAD INCREASED BREAST TISSUE/PAIN HX OF CYST [id number] 08/10/2013 15:06:00 08/10/2013 23:59:59 CLS Outpatient WHITNEY HOLLIS MD [facility] RAD SCREENING [id number] 06/01/2018 07:24:00 ACT Outpatient STEVEN SEE DO [facility] ENDO SCREENING/FAMILY HX COLON CANCER [id number] 04/26/2015 07:23:00 Document Registration [id number] 04/26/2015 07:23:00 Document Registration [id number] 07/16/2012 14:06:00 Document Registration [id number] 06/01/2012 07:29:00 Document Registration [id number] 12/22/2011 07:11:00 Document Registration [id number] 06/09/2011 05:50:00 Document Registration [id number] 05/06/2011 10:26:00 Document Registration [id number] 04/09/2011 09:12:00 Document Registration [id number] 05/31/2010 07:35:00 Document Registration [id number] 05/28/2017 22:18:35 05/28/2017 23:59:59 [facility] Outpatient
[2018-06-01] MEDS ORDERED: PROPOFOL INJECTION 50 ML IV ONE ×2 (07:47→08:29)
[2018-06-01] MEDS ORDERED: MIDAZOLAM 2 MG/2 ML (VERSED) VIAL ONE (07:48)
[2018-06-01 07:50] VITALS: BP 130/74
--- NOTE | 2018-06-01 08:13 | Progress Note-Pre Operative ---
Pre-Operative Progress Note H&P Reviewed The H&P was reviewed, patient examined and no changes noted. Date Seen by Provider: Jun 01, 2018 Time Seen by Provider: 08:11 Date H&P Reviewed: Jun 01, 2018 Time H&P Reviewed: 08:11 Pre-Operative Diagnosis: family history of colon cancer STEVEN SEE DO Jun 01, 2018 08:13
--- NOTE | 2018-06-01 09:33 | Discharge Inst-Simple/Standard ---
Discharge Inst-Standard Discharge Medications New, Converted or Re-Newed RX: RX on Chart Patient Instructions/Follow Up Plan of Care/Instructions/FU: Need repeat colonoscopy in 5 years. Any issues before that be seen at that time. Activity as Tolerated: Yes Discharge Diet: Regular Diet STEVEN SEE DO Jun 01, 2018 09:33
--- NOTE | 2018-06-01 09:37 | Progress Note-Post Operative ---
Post-Operative Progess Note Surgeon (s)/Corrections Unit Supervisor (s) Surgeon STEVEN SEE DO Corrections Unit Supervisor: na Pre-Operative Diagnosis family history of colon cancer Post-Operative Diagnosis same Procedure & Operative Findings Date of Procedure 06/01/18 Procedure Performed/Findings colonoscopy Anesthesia Type per fuel dock attendant Estimated Blood Loss Estimated blood loss (mL): none Specimens/Packing Specimens Removed na STEVEN SEE DO Jun 01, 2018 09:36
[2018-06-01 09:50] VITALS: BP 108/54
[2018-06-01 10:20] VITALS: BP 107/49
[2018-06-01 11:00] VITALS: BP 107/49
--- NOTE | 2018-06-01 13:12 | Anesthesia-General Post-Op ---
General Patient Condition Mental Status/LOC: Same as Preop Cardiovascular: Satisfactory Nausea/Vomiting: Absent Respiratory: Satisfactory Pain: Controlled Complications: Absent Post Op Complications Complications None Follow Up Care/Instructions Patient Instructions None needed. Anesthesia/Patient Condition Patient Condition Patient is doing well, no complaints, stable vital signs, no apparent adverse anesthesia problems. No complications reported per nursing. ANDRZEJ HOPKINS CRNA Jun 01, 2018 13:12
--- NOTE | 2018-06-01 14:39 | OPERATIVE REPORT ---
DATE OF SERVICE: 06/01/2018 PREOPERATIVE DIAGNOSIS: Family history of colon cancer. POSTOPERATIVE DIAGNOSIS: Family history of colon cancer. PROCEDURE: Colonoscopy. SURGEON: Steven Kelley DO ANESTHESIA: Per CERTIFIED SHORTHAND REPORTER. ESTIMATED BLOOD LOSS: None. INDICATIONS: The patient is a 63-year-old female who was sent by primary care provider for a screening colonoscopy due to family history of colon cancer. She understands risks and benefits of procedure and wished to proceed with procedure. Consent was signed on the chart. DESCRIPTION OF PROCEDURE: The patient was taken to the endoscopy suite, placed in left lateral recumbent position. Timeout was performed. Digital rectal exam was performed. No palpable polyps, mass or ulcerations. The scope was inserted in the rectum and advanced all the way to the cecum with minimal difficulty. Her prep was adequate. Scope was then slowly retracted back. There were no polyps, masses or ulcerations within the cecum, ascending, transverse, descending and sigmoid colon. Once in the rectum, scope was also retroflexed noting no other pathology. Scope was returned to its normal position, slowly withdrawn until completely removed. The patient tolerated procedure well without any complications. She was taken to recovery room in stable condition. RECOMMENDATIONS: The patient will need repeat colonoscopy in 5 years. If she has any problems prior to that, she should be reevaluated at that time. Job ID: [id number] DocumentID: [id number] Dictated Date: 06/01/2018 09:36:39 Rotary Cutter Date: 06/01/2018 14:38:26 Dictated By: STEVEN KELLEY DO
== END 2018-06-01 11:00 | disposition home or self-care (01) ==
LOC: ENDO 07:24
PROVIDERS: ATTEND Surgery
DX: Z12.11 Encounter for screening for malignant neoplasm of colon (principal); Z80.0 Family history of malignant neoplasm of digestive organs

== ENCOUNTER → 2018-06-25 | Outpatient (CLI) | payer OTHER ==
--- NOTE | 2018-06-25 11:52 | Diagnostic Imaging Report ---
INDICATION: Routine screening. Comparison is made with prior mammograms from 05/26/2016 and 11/22/2014. 2-D and 3-D bilateral screening mammography was performed. The current study was also evaluated with a Computer Aided Detection (CAD) system. FINDINGS: Both breasts are heterogeneously dense, limiting the sensitivity of mammography. The parenchymal pattern is stable. No spiculated mass or malignant-appearing microcalcifications are seen. The axillae are unremarkable. IMPRESSION: No mammographic features suspicious for malignancy are identified. ACR BI-RADS Category 1: Negative. Result letter will be mailed to the patient. Note: At least 10% of breast cancer is not imaged by mammography. Dictated by: Dictated on workstation # [id number]
== END ==
LOC: RAD 09:47
PROVIDERS: ATTEND Nurse Practitioner Family
DX: Z12.31 Encounter for screening mammogram for malignant neoplasm of breast (principal)
CPT/HCPCS: 77067

== ENCOUNTER → 2019-09-30 | Outpatient (CLI) | payer OTHER ==
[~2019-09-30] MED LIST changes: -ROSU10TA27 PO; +ROSU10TA28 PO
--- NOTE | 2019-09-30 10:11 | Diagnostic Imaging Report ---
INDICATION: Routine screening. COMPARISON is made with prior mammogram from 06/25/2018 and 05/16/2016. TECHNIQUE: 2-D and 3-D bilateral screening mammography was performed with CAD Both breasts are heterogeneously dense, limiting the sensitivity of mammography. There are benign calcifications in both breasts. No mass or malignant appearing microcalcifications are seen. Axillae are unremarkable. IMPRESSION: BI-RADS Category 2 No mammographic features suspicious for malignancy are identified. ACR BI-RADS Category 2: Benign findings. Result letter will be mailed to the patient. Note: At least 10% of breast cancer is not imaged by mammography. Dictated by: Dictated on workstation # [id number]
== END ==
LOC: RAD 07:17
PROVIDERS: ATTEND Nurse Practitioner Family
DX: Z12.31 Encounter for screening mammogram for malignant neoplasm of breast (principal)
CPT/HCPCS: 77067

== ENCOUNTER → 2020-02-22 | Outpatient (CLI) | payer OTHER | LOC: LABNPT 14:19 | PROVIDERS: ATTEND Family Medicine | DX: Z11.59 Encounter for screening for other viral diseases (principal) | CPT/HCPCS: 87430; 87635; 87804 ==

== ENCOUNTER → 2021-03-26 | Outpatient (CLI) | payer OTHER ==
[~2021-03-26] MED LIST changes: +ESCI-2 PO; -ESCI10TA55 PO; +MULT-567 PO; -MULT1TAB69 PO
[2021-03-26 09:22] LABS: BASOPHILS % (AUTO) 1 % (0-10); EOSINOPHILS # (AUTO) 0.1 10^3/uL (0.0-0.3); EOSINOPHILS % (AUTO) 1 % (0-10); HEMATOCRIT 43 % (35-52); HEMOGLOBIN 14.5 g/dL (11.5-16.0); LYMPHOCYTES # (AUTO) 1.4 10^3/uL (1.0-4.0); LYMPHOCYTES % (AUTO) 24 % (12-44); MEAN CORPUSCULAR HEMOGLOBIN 31 pg (25-34); MEAN CORPUSCULAR HGB CONC 34 g/dL (32-36); MEAN CORPUSCULAR VOLUME 92 fL (80-99); MEAN PLATELET VOLUME 9.7 fL (9.0-12.2); MONOCYTES # (AUTO) 0.5 10^3/uL (0.0-1.0); MONOCYTES % (AUTO) 10 % (0-12); NEUTROPHILS # (AUTO) 3.6 10^3/uL (1.8-7.8); NEUTROPHILS % (AUTO) 64 % (42-75); PLATELET COUNT 307 10^3/uL (130-400); WHITE BLOOD COUNT 5.6 10^3/uL (4.3-11.0)
[2021-03-26 09:42] LABS: ALBUMIN 3.9 GM/DL (3.2-4.5); CHLORIDE 107 MMOL/L (98-107); POTASSIUM 4.5 MMOL/L (3.6-5.0); SODIUM 140 MMOL/L (135-145)
[2021-03-26 09:43] LABS: CALCIUM 9.3 MG/DL (8.5-10.1)
[2021-03-26 09:44] LABS: GLUCOSE 98 MG/DL (70-105); TOTAL PROTEIN 7.1 GM/DL (6.4-8.2); TRIGLYCERIDES 76 MG/DL (<150); VLDL CHOLESTEROL 15 MG/DL (5-40)
[2021-03-26 09:45] LABS: CARBON DIOXIDE 21 MMOL/L (21-32)
[2021-03-26 09:46] LABS: BILIRUBIN,TOTAL 0.8 MG/DL (0.1-1.0)
[2021-03-26 09:48] LABS: ALKALINE PHOSPHATASE 65 U/L (40-136); CREATININE SERUM 0.71 MG/DL (0.60-1.30); GFR ESTIMATED > 60
[2021-03-26 09:49] LABS: BUN/CREATININE RATIO 21; CHOLESTEROL 185 MG/DL (< 200)
[2021-03-26 09:50] LABS: HDL CHOLESTEROL 60 MG/DL (40-60)
[2021-03-26 09:51] LABS: ALANINE AMINOTRANSFERASE 43 U/L (0-55)
== END ==
LOC: LAB 09:04
PROVIDERS: ATTEND Nurse Practitioner Family
DX: Z00.00 Encounter for general adult medical examination without abnormal findings (principal)
CPT/HCPCS: 36415; 80053; 80061; 84443; 85025

== ENCOUNTER → 2021-08-23 | Outpatient (CLI) | payer OTHER ==
[~2021-08-23] MED LIST changes: +GADOBUTROL 15 MMOL/15 ML (GADAVIST) VIAL IV ONE
--- NOTE | 2021-08-23 09:42 | Diagnostic Imaging Report ---
PROCEDURE: MR imaging of the brain with and without contrast. TECHNIQUE: Multiplanar, multisequence MR imaging of the brain was performed with and without contrast. INDICATION: Memory loss. COMPARISON: None. FINDINGS: Minimal generalized parenchymal volume loss. Minimal nonspecific T2 hyperintensities in the supratentorial white matter compatible with chronic small vessel ischemic change. No abnormal intracranial enhancement. No restricted water diffusion. No hemosiderin deposition or evidence of intracranial hemorrhage. Normal morphology including the major midline structures, sella, posterior fossa and cerebellar pontine angle. No hydrocephalus or extra-axial fluid collections. Normal intracranial flow voids. The orbits are negative. Paranasal sinuses and mastoids are clear. Normal bone marrow signal. IMPRESSION: 1. No acute intracranial MRI findings. No no evidence of acute infarction or hemorrhage. 2. Minimal generalized volume loss and chronic small vessel ischemic change is less than expected for age. Dictated by: Dictated on workstation # [id number]
== END ==
LOC: RAD 08:00
PROVIDERS: ATTEND Family Medicine
DX: R41.3 Other amnesia (principal)
CPT/HCPCS: 70553

== ENCOUNTER → 2022-04-22 | Outpatient (CLI) | payer OTHER ==
[~2022-04-22] MED LIST changes: -GADOBUTROL 15 MMOL/15 ML (GADAVIST) VIAL IV ONE
--- NOTE | 2022-04-22 16:41 | Diagnostic Imaging Report ---
INDICATION: Chronic sinusitis, right worse than left. TECHNIQUE: Multiple contiguous axial images were obtained through the sinuses without the use of intravenous contrast. Coronal and sagittal reformations were then performed. Auto Exposure Controls were utilized during the CT exam to meet ALARA standards for radiation dose reduction. COMPARISON: There is no prior sinus CT for comparison. FINDINGS: The frontal sinuses appear clear. The ethmoid air cells appear clear. The sphenoid sinuses are clear. The maxillary sinuses are clear. The visualized portions of the mastoid air cells are also clear. The orbital contents appear unremarkable. There is slight deviation of the nasal septum toward the left side. The turbinates appear symmetric. The ostiomeatal complexes are not obstructed. IMPRESSION: No CT evidence of significant sinusitis at this time. Dictated by: Dictated on workstation # [id number]
== END ==
LOC: RAD 16:15
PROVIDERS: ATTEND Otolaryngology Otolaryngology/Facial Plastic Surgery
DX: J32.9 Chronic sinusitis, unspecified (principal)
CPT/HCPCS: 70486

== ENCOUNTER 2023-06-17 08:23 | Outpatient (CLI) | payer MEDICARE, OTHER ==
[~2023-06-17] VITALS: Ht 160 cm; Wt 58.5 kg
[2023-06-17] MEDS ORDERED: LACTATED RINGERS 1,000 ML IV STA (09:43)
== END 2023-06-17 09:45 | disposition home or self-care (01) ==
LOC: PREOP 08:23
PROVIDERS: ATTEND Surgery
DX: Z01.818 Encounter for other preprocedural examination (principal)

== ENCOUNTER 2023-06-30 06:58 | Day surgery (SDC) | payer MEDICARE, OTHER ==
[2023-06-30] VITALS (8 sets, daily range): BP systolic 94–141; BP diastolic 49–94
[~2023-06-30] VITALS: Ht 160 cm; Wt 58.5 kg
[2023-06-30] MEDS ORDERED: LACTATED RINGERS 1,000 ML IV STA (07:06)
[2023-06-30] MEDS ORDERED: PROPOFOL INJECTION 50 ML IV ONE (07:22)
[2023-06-30] MEDS ORDERED: MIDAZOLAM INJ 2 MG/2 ML VIAL ONE (08:11)
--- NOTE | 2023-06-30 08:16 | Progress Note-Pre Operative ---
Pre-Operative Progress Note Date H&P Reviewed: Jun 30, 2023 Time H&P Reviewed: 08:15 History & Physical: H&P Reviewed, Patient Examed, No changes noted Pre-Operative Diagnosis: family history of colon cancer STEVEN SEE DO Jun 30, 2023 08:16
--- NOTE | 2023-06-30 08:46 | Progress Note-Post Operative ---
Post-Operative Progess Note Surgeon (s)/Doll Repairer (s) Surgeon STEVEN SEE DO Doll Repairer: None Pre-Operative Diagnosis family history of colon cancer Post-Operative Diagnosis Colon polyps Procedure & Operative Findings Date of Procedure 06/30/23 Procedure Performed/Findings Colonoscopy with hot biopsy polypectomy x 2 Anesthesia Type per CHEMICAL ETCHING PROCESSOR Estimated Blood Loss Estimated blood loss (mL): none Specimens/Packing Specimens Removed transverse colon polyps STEVEN SEE DO Jun 30, 2023 08:46
--- NOTE | 2023-06-30 08:47 | Discharge Inst-Simple/Standard ---
Discharge Inst-Standard Patient Instructions/Follow Up Plan of Care/Instructions/FU: [place] 2 weeks Activity as Tolerated: Yes Discharge Diet: Regular Diet (High fiber) STEVEN SEE DO Jun 30, 2023 08:47
--- NOTE | 2023-06-30 13:26 | OPERATIVE REPORT ---
DATE OF SERVICE: 06/30/2023 PREOPERATIVE DIAGNOSIS: Family history of colon cancer. POSTOPERATIVE DIAGNOSIS: Colon polyps. PROCEDURE: Colonoscopy with hot biopsy polypectomy x2. SURGEON: Steven Kelley DO ANESTHESIA: Per [employer]. ESTIMATED BLOOD LOSS: None. COMPLICATIONS: None. INDICATIONS: The patient is a 68-year-old female, needing screening colonoscopy due to family history. She understands risks and benefits of procedure and wished to proceed. Consent was signed in chart. DESCRIPTION OF PROCEDURE: The patient was taken to endoscopy suite, placed in left lateral recumbent position. Timeout was performed. Digital rectal exam was performed. No palpable polyps, masses or ulcerations. Scope was inserted in the rectum, advanced all the way to the cecum with minimal difficulty. Prep was adequate. Scope was slowly retracted back. No polyps, masses or ulcerations within the cecum or the ascending colon. In the transverse colon, 2 small polyps were present, which hot biopsy polypectomy was performed. Scope was then continuously retracted back. No other polyps, masses or ulcerations in the remainder of the transverse, descending and sigmoid colon. Once in the rectum, the scope was inserted and retracted multiple times and then was unable to be retroflexed. RECOMMENDATIONS: The patient will need repeat colonoscopy in 5 years due to family history of colon cancer and personal history of polyps. Any issues before that, he will be seen at that time. The patient will follow up on pathology in 2 weeks. Job ID: [id number] DocumentID: [id number] Dictated Date: 06/30/2023 08:49:46 Cad Operator Date: 06/30/2023 13:24:00 Dictated By: STEVEN KELLEY DO
--- NOTE | 2023-06-30 14:07 | Anesthesia-General Post-Op ---
MAC Patient Condition Mental Status/LOC: Same as Preop Cardiovascular: Satisfactory Nausea/Vomiting: Absent Respiratory: Satisfactory Pain: Controlled Complications: Absent Post Op Complications Complications None Follow Up Care/Instructions Patient Instructions None needed. Anesthesiology Discharge Order Discharge Order Patient is doing well, no complaints, stable vital signs, no apparent adverse anesthesia problems. No complications reported per nursing. ANNMARIE MCKEON CRNA Jun 30, 2023 14:07
== END 2023-06-30 10:10 | disposition home or self-care (01) ==
LOC: ENDO 06:58
PROVIDERS: ATTEND Surgery
DX: Z12.11 Encounter for screening for malignant neoplasm of colon (principal); D12.3 Benign neoplasm of transverse colon; Z80.0 Family history of malignant neoplasm of digestive organs